=== PATIENT | female | born 1970 | race Asian ===

== ENCOUNTER 2019-05-27 07:24 | Emergency (ER) | payer MEDICAID ==
[~2019-05-27] VITALS: Ht 154.9 cm; Wt 52.0 kg
[2019-05-27 07:33] VITALS: BP 133/90
== END 2019-05-27 09:01 | disposition home or self-care (01) ==
LOC: MERGE 07:24 → ED 08:55
DX: R07.89 Other chest pain (principal)
CPT/HCPCS: 99283